=== PATIENT | male | born 1955 | race Caucasian/White ===

== ENCOUNTER 2022-06-18 09:38 | Emergency (ER) | payer OTHER ==
[2022-06-18] MEDS ORDERED: TETANUS & DIPHTHERIA TOX,ADULT 0.5 ML VIAL ONE (10:35)
[2022-06-18] MEDS ORDERED: BUPIVACAINE 0.5% PF 10 ML VIAL ONE ×2 (10:35→10:36)
--- NOTE | 2022-06-18 12:14 | EDPHYS ---
Physician Documentation [facility] Name: Diego Loomis Age: 66 yrs Sex: Male : 1955 Arrival Date: 06/18/2022 Time: 09:40 Bed DIS2 Private MD: ED Physician Gómez Michele HPI: 06/18 09:53 This 66 yrs old Male presents to ER via Ambulatory with complaints of Finger laceration.[facility] 09:53 The patient or guardian reports injury, a laceration. Onset: The symptoms/episode jmm began/occurred acutely, just prior to arrival. 11:31 Modifying factors: The symptoms are alleviated by nothing, the symptoms are aggravated jmm by nothing. This is a 66 year old male with a history of macular degeneration that presents to the ED with a laceration to his right 2nd finger. Patient states a ceramic toilet broke and cut his finger. Patient unsure on tetanus immunization. Denies other injury. . Historical: - Allergies: 10:06 No Known Allergies; [facility] - Immunization history:: Adult Immunizations up to date, Client reports receiving the 2nd dose of the Covid vaccine. - Social history:: Smoking status: Patient reports the use of cigarette tobacco products. ROS: 11:35 Constitutional: Negative for fever, chills, and weight loss, Cardiovascular: Negative jmm for chest pain, palpitations, and edema, Respiratory: Negative for shortness of breath, cough, wheezing, and pleuritic chest pain. 11:35 Skin: Positive for laceration(s). 11:35 All other systems are negative. Exam: 11:35 Constitutional: This is a well developed, well nourished patient who is awake, alert, jmm and in no acute distress. Head/Face: atraumatic. Eyes: EOMI, no conjunctival erythema appreciated ENT: Moist Mucus Membranes Neck: Trachea midline, Supple Chest/axilla: Normal chest wall appearance and motion. Cardiovascular: Regular rate and rhythm. No edema appreciated Respiratory: Normal respirations, no respiratory distress appreciated Abdomen/GI: Non distended Back: Normal ROM 11:35 Musculoskeletal/extremity: 2 cm laceration noted to the right 2nd finger mid phalanx, patient has decreased rom of the dip. < 2 sec dist cap refill. . 11:35 Skin: Appearance: Color: 2 cm laceration noted to the right 2nd index finger. 11:35 Neuro: Orientation: is normal, Mentation: is normal, Memory: is normal. 11:35 Psych: Behavior/mood is pleasant, cooperative. Vital Signs: 10:03 BP 108 / 74; Pulse 62; Resp 18; Temp 97.9; Pulse Ox 97% ; Weight 77.11 kg; Height 6 ft. jh6 2 in. (187.96 cm); Pain 7/10; 10:03 Body Mass Index 21.83 (77.11 kg, 187.96 cm) 6 Laceration: 11:38 Wound Repair of 2cm ( 0.8in ) subcutaneous laceration to palmar aspect of middle jmm phalanx of right index finger. Distal neuro/vascular/tendon intact. Anesthesia: Local anesthetic administered with 4 mls of 0.5% marcaine. Wound prep: Simple cleansing with betadine by me. Skin closed with 6 5-0 Prolene using simple sutures and sterile technique. Patient tolerated well. MDM: 09:53 Patient medically screened. [facility] 12:12 Data reviewed: vital signs, nurses notes. Counseling: I had a detailed discussion with shannon the patient and/or guardian regarding: the historical points, exam findings, and any diagnostic results supporting the discharge/admit diagnosis, the need for outpatient follow up, to return to the emergency department if symptoms worsen or persist or if there are any questions or concerns that arise at home. ED course: Due to concerns for tendon injury. Patient advised to follow up with hand surgery. patient is otherwise given strict return precautions. patient understood and agrees with the plan of care. . 06/18 11:25 Order name: Finger Splint; Complete Time: 12:06 [facility] Administered Medications: 10:30 Drug: Marcaine (bupivacaine) (0.5 %) 10 ml {Note: administered by PA. 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 Exp: jl7 02/22/2024. Lot #: [id number]. } Route: IM; Site: left deltoid; 12:07 Follow up: Response: No adverse reaction jl7 Disposition: 06/19 09:23 Co-signature as Attending Physician, Gómez Michele DO I was immediately available on-site ms3 in the Emergency Department for consultation in the care of the patient.. Disposition Summary: 06/18/22 12:14 Discharge Ordered Location: Home [facility] Condition: Stable [facility] Diagnosis - Finger Laceration [facility] Followup: jmm - With: Private Physician - When: 2 - 3 days - Reason: Recheck today's complaints, Continuance of care, Re-evaluation by your physician Followup: [facility] - With: Surjit Rangel MD - When: 1 - 2 days - Reason: Recheck today's complaints, Continuance of care, Re-evaluation by your physician Discharge Instructions: - Discharge Summary Sheet [facility] - Laceration Care, Adult [facility] Forms: - Medication Reconciliation Form [facility] - Thank You Letter [facility] - Antibiotic Education [facility] - Prescription Opioid Use [facility] Prescriptions: - Cephalexin 500 mg Oral Capsule - take 1 capsule by ORAL route every 6 hours for 10 days; 40 capsule; Refills: 0, [facility] Product Selection Permitted Signatures: Michelet Lynn PA PA jmm Leal, Jahala, RN RN jl7 Gómez Michele DO DO ms3 Mary Anne Xavier RN RN jh6
--- NOTE | 2022-06-18 12:14 | ER ---
Nurse's Notes [facility] Name: Diego Loomis Age: 66 yrs Sex: Male : 1955 Arrival Date: 06/18/2022 Time: 09:40 Bed DIS2 Private MD: Diagnosis: Finger Laceration Presentation: 06/18 10:03 Chief complaint: Patient states: Pt reports laceration to right index finger that jh6 occurred while breaking up a ceramic toilet just prior to arrival. Small amount of bleeding noted upon arrival. PT cleaned laceration with water and wrapped with guaze prior to arrival. Coronavirus screen: Vaccine status:. Coronavirus screen: Vaccine status: Patient reports being unvaccinated. Ebola Screen: Patient negative for fever greater than or equal to 101.5 degrees Fahrenheit, and additional compatible Ebola Virus Disease symptoms Patient denies exposure to infectious person. Patient denies travel to an Ebola-affected area in the 21 days before illness onset. Initial Sepsis Screen: Does the patient meet any 2 criteria? No. Patient's initial sepsis screen is negative. Does the patient have a suspected source of infection? No. Patient's initial sepsis screen is negative. Risk Assessment: Do you want to hurt yourself or someone else? Patient reports no desire to harm self or others. 10:03 Method Of Arrival: Ambulatory [facility] 10:03 Acuity: SIMEON 4 jh6 Triage Assessment: 10:07 General: Appears in no apparent distress. Pain: Complains of pain in dorsal aspect of jh6 distal phalanx of left index finger Pain currently is 8 out of 10 on a pain scale. Quality of pain is described as throbbing, Pain began suddenly, Is continuous. Derm: Skin Reports lac to rt index finger. 12:45 General: Behavior is. jl7 Historical: - Allergies: 10:06 No Known Allergies; 6 - Immunization history:: Adult Immunizations up to date, Client reports receiving the 2nd dose of the Covid vaccine. - Social history:: Smoking status: Patient reports the use of cigarette tobacco products. Screenin:08 Abuse screen: Denies threats or abuse. Denies injuries from another. Nutritional jl7 screening: No deficits noted. Tuberculosis screening: No symptoms or risk factors identified. Fall Risk None identified. Assessment: 12:08 Reassessment: Patient appears in no apparent distress at this time. Patient and/or jl7 family updated on plan of care and expected duration. Pain level reassessed. Patient is alert, oriented x 3, equal unlabored respirations, skin warm/dry/pink. Patient denies pain at this time. Patient states feeling better. Vital Signs: 10:03 BP 108 / 74; Pulse 62; Resp 18; Temp 97.9; Pulse Ox 97% ; Weight 77.11 kg; Height 6 ft. 6 2 in. (187.96 cm); Pain 7/10; 10:03 Body Mass Index 21.83 (77.11 kg, 187.96 cm) [facility] ED Course: 09:40 Patient arrived in ED. mr 09:41 Michelet Lynn PA is PHCP. [facility] 09:41 Gómez Michele DO is Attending Physician. [facility] 10:06 Triage completed. [facility] 10:08 Arm band placed on left wrist. [facility] 10:19 Timothy Cardoza, KIMBERLYN is Primary Nurse. 7 12:08 Patient has correct armband on for positive identification. jl7 12:08 Assist provider with laceration repair on dorsal aspect of distal phalanx of left index jl7 finger that was between 2.6 to 7.5 cm using sutures. Set up tray. Performed by Michelet FUNES Dressed with Patient tolerated well. 12:14 Surjit Rangel MD is Referral Physician. [facility] 12:47 Patient did not have IV access during this emergency room visit. 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 Exp: jl7 02/22/2024. Lot #: [id number]. } Route: IM; Site: left deltoid; 12:07 Follow up: Response: No adverse reaction 7 Medication: 12:08 Vaccine Information Statement (VIS) provided today. Questions and/or concerns 7 addressed. VIS edition date: July 05, 2022. Outcome: 12:14 Discharge ordered by . [facility] 12:45 Discharged to home ambulatory. 7 12:45 Condition: stable 12:45 Discharge instructions given to patient, Instructed on discharge instructions, follow up and referral plans. medication usage, Demonstrated understanding of instructions, follow-up care, medications, Prescriptions given X 1. 12:47 Patient left the ED. jl7 Signatures: Michelet Lynn PA PA jmm Rivera, Mary mr Cardoza, Timothy RN RN jl7 Mary Anne Xavier RN RN jh6
[2022-06-18 13:14] VITALS: BP 108/74; TEMP 97.9; O2SAT 97
== END 2022-06-18 12:47 | disposition home or self-care (01) ==
LOC: ER 09:38
PROC: 0JQJ0ZZ Repair Right Hand Subcutaneous Tissue and Fascia, Open Approach (ICD-10-PCS; principal; 2022-06-18)
DX: S61.212A Laceration without foreign body of right middle finger without damage to nail, initial encounter (principal); S61.210A Laceration without foreign body of right index finger without damage to nail, initial encounter; Z72.0 Tobacco use; Z23 Encounter for immunization
CPT/HCPCS: 90714